=== PATIENT | male | born 1990 | race African-American/Black ===

== ENCOUNTER 2025-06-24 21:35 | Emergency (ER) | payer MEDICAID, OTHER ==
[~2025-06-24] VITALS: Ht 175.3 cm; Wt 226.7 kg
[~2025-06-24 21:35] MED LIST: AMLO10TA80 PO; CARV25TA47 PO; COR12 PO; FURO40TA5 MT; HYDR100T11 PO; ISOS20TA8 PO; LOSA100T33 PO
[2025-06-24 21:37] VITALS: O2SAT 96
[2025-06-24 22:49] LABS: *AMPHETAMINES SCREEN URINE NEGATIVE (NEGATIVE); *BARBITURATES SCREEN URINE NEGATIVE (NEGATIVE); *BENZODIAZEPINES SCREEN URINE NEGATIVE (NEGATIVE); *COCAINE SCREEN URINE NEGATIVE (NEGATIVE); CANNABINOID URINE SCREEN NEGATIVE (NEGATIVE); ECSTASY MDMA SCREEN URINE NEGATIVE (NEGATIVE); METHADONE URINE SCREEN NEGATIVE (NEGATIVE); OPIATES URINE SCREEN NEGATIVE (NEGATIVE); PHENCYCLIDINE URINE SCREEN NEGATIVE (NEGATIVE)
[2025-06-24 23:44] LABS: BASOPHILS % 1.0 % (0.0-2.0); EOSINOPHILS % 1.7 % (0.0-5.0); HEMATOCRIT. 40.1 % (42.0-52.0); HEMOGLOBIN. 13.4 g/dL (14.0-18.0); LYMPHOCYTES % 19.0 % (20.0-50.0); MEAN PLATELET VOLUME 7.4 fl (7.4-10.4); MONOCYTES % 5.8 % (2.0-8.0); NEUTROPHILS % 72.5 % (40.0-76.0); PLATELET 399 x1000/uL (130-400); RED BLOOD CELL COUNT 4.91 mill/uL (4.7-6.1); RED CELL DISTRIBUTION WIDTH 16.1 % (11.6-14.6)
[2025-06-24 23:54] LABS: INR 1.0
[2025-06-24 23:59] LABS: CREATININE 1.1 mg/dL (0.6-1.3); ETHANOL BLOOD < 10 mg/dL (<10); UREA NITROGEN BLOOD 12 mg/dL (9-23)
[2025-06-25] LABS: TROPONIN I HIGH SENSITIVITY 37 ng/L (3.0-53)
[2025-06-25] MEDS: ASPIRIN 325MG EC TABLET PO ONE (01:02)
[2025-06-25] MEDS: CARVEDILOL 12.5MG TABLET PO ONE (01:03)
[2025-06-25] MEDS: FUROSEMIDE 40MG/4ML VIAL IVP ONE (01:03)
[2025-06-25] MEDS: HYDRALAZINE 20MG/ML VIAL IV ONE (01:03)
[2025-06-25 01:39] VITALS: BP 134/67; PULSE 74; RESP 20; TEMP 36.6; O2SAT 97
== END 2025-06-25 03:36 | disposition short-term general hospital (02) ==
LOC: ER 21:35 → CMPBEDREQ 06-25 07:53
DX: R07.2 Precordial pain (principal); I11.0 Hypertensive heart disease with heart failure; I50.9 Heart failure, unspecified; E66.01 Morbid (severe) obesity due to excess calories; Z79.899 Other long term (current) drug therapy
CPT/HCPCS: 80305; 80048; 80320; 83880; 85025; 85379; 85610; 85730; 84484; 36415; 71045; 93005; 99285; 96374; 96375; Z7610 ×2; J1938; J0360; G0480